=== PATIENT | male | born 1950 | race Caucasian/White ===

== ENCOUNTER → 2016-12-19 | Outpatient (CLI) | payer MEDICARE, BC ==
[~2016-12-19] MED LIST: ATOR20TA9 PO; HYDR-3240 PO; blood thinner PO
== END | disposition home or self-care (01) ==
LOC: CFH 08:03
PROVIDERS: ATTEND Surgery
DX: I71.4 Abdominal aortic aneurysm, without rupture (principal)
CPT/HCPCS: 93978

== ENCOUNTER 2017-10-22 11:15 | Inpatient (IN) | payer MEDICARE, BC ==
[~2017-10-22] VITALS: Ht 177.8 cm; Wt 77.1 kg
[2017-10-22] MEDS ORDERED: NITROGLYCERIN SINGLE TAB 0.4 MG SL ONE (11:49)
[2017-10-22] MEDS ORDERED: NITROGLYCERIN OINT 2%, 1GM TP ONE ×2 (11:58→12:00)
[2017-10-22] MEDS ORDERED: NITROGLYCERIN SINGLE TAB 0.4 MG SL PRN (12:00)
[2017-10-22] MEDS ORDERED: SODIUM CHLORIDE FLUSH 10ML SYR IVF ONE (12:00)
[2017-10-22] MEDS ORDERED: METO25TA35 PO (12:06)
[2017-10-22] MEDS ORDERED: LISI-167 PO (12:06)
[2017-10-22] MEDS ORDERED: EZET10TA18 PO (12:06)
[2017-10-22 12:21] LABS: BASOPHILS # (AUTO) 0.03 x10^3/uL (0-0.1); BASOPHILS % (AUTO) 0 % (0-1); EOSINOPHILS # (AUTO) 0.08 x10^3/uL (0-0.4); EOSINOPHILS % (AUTO) 1 % (1-7); LYMPHOCYTES # (AUTO) 2.93 x10^3/uL (1-3.4); LYMPHOCYTES % (AUTO) 31 % (22-44); MD NO; MEAN CORPUSCULAR HEMOGLOBIN 32.5 pg (27.5-34.5); MEAN CORPUSCULAR HGB CONC 33.8 g/dL (33.2-36.2); MEAN CORPUSCULAR VOLUME 96.2 fL (81-97); MEAN PLATELET VOLUME 7.9 fL (7.4-10.4); MONOCYTES # (AUTO) 0.82 x10^3/uL (0.2-0.8); MONOCYTES % (AUTO) 9 % (2-9); NEUTROPHILS # (AUTO) 5.48 x10^3/uL (1.8-6.8); NEUTROPHILS % (AUTO) 59 % (42-75); PLATELET COUNT 228 x10^3/uL (130-400); RED BLOOD COUNT 5.03 x10^6/uL (4.38-5.82); RED CELL DISTRIBUTION WIDTH 12.8 % (9.4-14.8)
[2017-10-22 12:32] LABS: ALBUMIN 3.9 g/dL (3.4-5.0); ANION GAP 7 mmol/L (5-15); CALCIUM 9.1 mg/dL (8.5-10.1); CHLORIDE 104 mmol/L (98-107); CREATININE 1.04 mg/dL (0.7-1.3)
[2017-10-22 12:36] LABS: TROPONIN I < 0.015 ng/mL (0.000-0.045)
[2017-10-22 13:57] LABS: TROPONIN I < 0.015 ng/mL (0.000-0.045)
[2017-10-22] MEDS ORDERED: ZOLPIDEM 5MG TABLET PO PRN (15:30)
[2017-10-22] MEDS ORDERED: morphine SULFATE 10 MG/ML, 1ML IV PRN (15:30)
[2017-10-22] MEDS ORDERED: NITROGLYCERIN 0.4 MG/SPRAY SL PRN (15:30)
[2017-10-22] MEDS ORDERED: ACETAMINOPHEN 325 MG TABLET PO PRN (15:30)
[2017-10-22] MEDS ORDERED: ASPIRIN 325 MG TABLET EC PO ONE (15:30)
[2017-10-22] MEDS ORDERED: ONDANSETRON 2MG/ML, 2ML IVP PRN (15:30)
[2017-10-22] MEDS ORDERED: BISACODYL 10 MG SUPP PR PRN (15:30)
[2017-10-22] MEDS ORDERED: NITROGLYCERIN 0.4 MG BOTTLE (25 TABS) SL PRN (15:30)
[2017-10-22] MEDS ORDERED: HYDROcodone/APAP 5/325 TABLET PO PRN (15:30)
[2017-10-22 15:33] VITALS: BP 128/80
[2017-10-22] MEDS: LISINOPRIL 10 MG TABLET PO SCH (20:07)
[2017-10-22 20:14] VITALS: BP 132/82
[2017-10-22] MEDS ORDERED: ATORVASTATIN 20 MG TABLET PO SCH (21:00)
[2017-10-22] MEDS: SODIUM CHLORIDE FLUSH 10ML SYR IVF SCH (21:00)
[2017-10-23 01:10] VITALS: BP_SYST 93; BP_SYST 94; BP_DIAS 56; BP_DIAS 59
[2017-10-23] MEDS ORDERED: ASPIRIN 325 MG TABLET EC PO SCH (06:00)
[2017-10-23 07:37] VITALS: BP 125/75
[2017-10-23] MEDS ORDERED: REGADENOSON 0.4 MG/5 ML SYRINGE ONE (07:54)
[2017-10-23] MEDS: LISINOPRIL 10 MG TABLET PO SCH (09:00)
[2017-10-23] MEDS: SODIUM CHLORIDE FLUSH 10ML SYR IVF SCH (09:00)
[2017-10-23] MEDS ORDERED: METOPROLOL TARTRATE 25 MG TABLET PO SCH (09:00)
[2017-10-23] MEDS ORDERED: EZETIMIBE 10 MG TABLET PO SCH (09:00)
[2017-10-23 13:25] VITALS: BP 116/75
== END 2017-10-23 16:00 | disposition home or self-care (01) | DRG 313 ==
LOC: ED 11:59 → EDIP 12:50 → 5SO 15:26
PROVIDERS: ADMIT Internal Medicine; ATTEND Internal Medicine
DX: R07.89 Other chest pain (principal); I25.2 Old myocardial infarction; E11.9 Type 2 diabetes mellitus without complications; E78.00 Pure hypercholesterolemia, unspecified; I10 Essential (primary) hypertension; Z87.891 Personal history of nicotine dependence; R00.1 Bradycardia, unspecified; Z88.6 Allergy status to analgesic agent; Z88.8 Allergy status to other drugs, medicaments and biological substances; E78.5 Hyperlipidemia, unspecified
CPT/HCPCS: 36415; 71045; 78452; 80048; 82040; 84484; 85025; 93005; 93017; 93978; 99285; J2785; A9502; C9898

== ENCOUNTER → 2018-03-05 | Outpatient (CLI) | payer MEDICARE ==
[~2018-03-05] MED LIST changes: +EZET10TA18 PO; +LISI-167 PO; +METO25TA35 PO; +OMNIPAQUE 350 MG/ML, 100ML BOTTLE ONE
== END | disposition home or self-care (01) ==
LOC: CFH 17:32
PROVIDERS: ATTEND Nurse Practitioner Family
DX: K57.30 Diverticulosis of large intestine without perforation or abscess without bleeding (principal); I71.4 Abdominal aortic aneurysm, without rupture; E27.8 Other specified disorders of adrenal gland
CPT/HCPCS: 74177; Q9967

== ENCOUNTER → 2018-06-18 | Outpatient (CLI) | payer MEDICARE ==
[~2018-06-18] MED LIST changes: -OMNIPAQUE 350 MG/ML, 100ML BOTTLE ONE
== END | disposition home or self-care (01) ==
LOC: CFH 07:22
PROVIDERS: ATTEND Nurse Practitioner Family
DX: I71.4 Abdominal aortic aneurysm, without rupture (principal)
CPT/HCPCS: 76705

== ENCOUNTER → 2018-06-30 | Outpatient (CLI) | payer MEDICARE | END | disposition home or self-care (01) | LOC: RAD 13:29 | PROVIDERS: ATTEND Nurse Practitioner Family | DX: K22.4 Dyskinesia of esophagus (principal); K21.9 Gastro-esophageal reflux disease without esophagitis; K57.32 Diverticulitis of large intestine without perforation or abscess without bleeding; R10.33 Periumbilical pain | CPT/HCPCS: 74220 ==

== ENCOUNTER 2019-01-25 10:36 | Outpatient (CLI) | payer MEDICARE ==
[~2019-01-25 10:36] MED LIST changes: +ATOR20TA37 PO; -ATOR20TA9 PO
== END 2019-01-25 23:59 | disposition home or self-care (01) ==
LOC: CFH 10:36
PROVIDERS: ATTEND Internal Medicine Cardiovascular Disease
DX: I35.8 Other nonrheumatic aortic valve disorders (principal); I10 Essential (primary) hypertension; I25.2 Old myocardial infarction; E78.5 Hyperlipidemia, unspecified; F17.210 Nicotine dependence, cigarettes, uncomplicated
CPT/HCPCS: 93306

== ENCOUNTER → 2021-05-01 | Outpatient (CLI) | payer MEDICARE ==
[~2021-05-01] MED LIST changes: -EZET10TA18 PO; +EZET10TA70 PO; +HYDR-2214 PO; -HYDR-3240 PO
== END | disposition home or self-care (01) ==
LOC: CVU 08:44
PROVIDERS: ATTEND Internal Medicine Cardiovascular Disease
DX: I71.4 Abdominal aortic aneurysm, without rupture (principal)
CPT/HCPCS: 93978